=== PATIENT | male | born 1970 | race Caucasian/White ===

== ENCOUNTER → 2023-12-05 07:07 | Outpatient (REF) | payer BC, SELFPAY | LOC: DHCBC/DCA 07:07 | PROVIDERS: ATTENDING PHYSICIAN Internal Medicine; FAMILY PHYSICIAN Family Medicine | DX: R07.9 Chest pain, unspecified (principal); I25.10 Atherosclerotic heart disease of native coronary artery without angina pectoris; I10 Essential (primary) hypertension; I48.0 Paroxysmal atrial fibrillation | CPT/HCPCS: 78452; 93017; A9500 ==

== ENCOUNTER → 2025-10-11 14:54 | Outpatient (REF) | payer BC, SELFPAY | LOC: HWRCS 14:54 | PROVIDERS: ATTENDING PHYSICIAN Internal Medicine; FAMILY PHYSICIAN Family Medicine | DX: I35.1 Nonrheumatic aortic (valve) insufficiency (principal); I10 Essential (primary) hypertension; I48.0 Paroxysmal atrial fibrillation; I77.810 Thoracic aortic ectasia | CPT/HCPCS: 93306 ==